=== PATIENT | female | born 1940 | race Two or more races ===

== ENCOUNTER 2020-06-10 11:58 | Emergency (ER) | payer OTHER ==
[~2020-06-10] VITALS: Ht 157.5 cm; Wt 58.1 kg
[2020-06-10] MEDS ORDERED: NORVASC5 MG (12:14)
[2020-06-10] MEDS ORDERED: NOVOLOG MI100 UNIT/1 (12:15)
[2020-06-10] MEDS ORDERED: CARAFATE1 GM PO (18:46)
[2020-06-10] MEDS ORDERED: LEVSIN/SL0.125 MG SL (18:51)
== END 2020-06-10 19:13 | disposition home or self-care (01) ==
LOC: ER 11:58
DX: K29.70 Gastritis, unspecified, without bleeding (principal); K57.90 Diverticulosis of intestine, part unspecified, without perforation or abscess without bleeding

== ENCOUNTER → 2021-03-15 07:18 | Outpatient (CLI) | payer OTHER ==
[~2021-03-15 07:18] MED LIST: CARAFATE1 GM PO; LEVSIN/SL0.125 MG SL; NORVASC5 MG; NOVOLOG MI100 UNIT/1
== END | disposition home or self-care (01) ==
LOC: MRI 07:15
PROVIDERS: ATTEND Internal Medicine Gastroenterology
DX: R10.84 Generalized abdominal pain (principal); K57.30 Diverticulosis of large intestine without perforation or abscess without bleeding; K30 Functional dyspepsia
CPT/HCPCS: 74183; A9575

== ENCOUNTER 2021-11-04 12:39 | Emergency (ER) | payer OTHER ==
[~2021-11-04] VITALS: Ht 180.3 cm; Wt 59.0 kg
[2021-11-04] MEDS ORDERED: PERCOGESIC EXT1 EACH PO (21:23)
== END 2021-11-04 22:06 | disposition home or self-care (01) ==
LOC: ER 12:39
DX: K57.90 Diverticulosis of intestine, part unspecified, without perforation or abscess without bleeding (principal); R10.11 Right upper quadrant pain; I10 Essential (primary) hypertension; E11.9 Type 2 diabetes mellitus without complications; Z79.4 Long term (current) use of insulin; Z88.8 Allergy status to other drugs, medicaments and biological substances

== ENCOUNTER 2021-11-07 11:43 | Emergency (ER) | payer OTHER ==
[~2021-11-07] VITALS: Ht 154.9 cm; Wt 59.0 kg
[~2021-11-07 11:43] MED LIST changes: +PERCOGESIC EXT1 EACH PO
== END 2021-11-07 18:24 | disposition home or self-care (01) ==
LOC: ER 11:43
DX: K59.00 Constipation, unspecified (principal); E11.9 Type 2 diabetes mellitus without complications; Z79.4 Long term (current) use of insulin; I10 Essential (primary) hypertension; Z88.8 Allergy status to other drugs, medicaments and biological substances; Z20.822 Contact with and (suspected) exposure to COVID-19

== ENCOUNTER 2021-11-16 13:28 | Emergency (ER) | payer OTHER ==
[~2021-11-16] VITALS: Ht 152.4 cm; Wt 59.0 kg
== END 2021-11-16 20:07 | disposition home or self-care (01) ==
LOC: ER 13:28
DX: K59.00 Constipation, unspecified (principal); E11.9 Type 2 diabetes mellitus without complications; Z79.4 Long term (current) use of insulin; I10 Essential (primary) hypertension; Z88.8 Allergy status to other drugs, medicaments and biological substances